=== PATIENT | male | born 1955 | race Caucasian/White ===

== ENCOUNTER 2018-05-03 13:33 | Emergency (ER) | payer OTHER ==
[~2018-05-03 13:33] MED LIST: ASPIR 8181 MG PO; ATORVASTATIN CA40 M1 PO; BACTRIM 400-801 EACH PO; CO-Q10 300 MG-31 SGL PO; FUROSEMIDE20 MG PO; GLUCOSAMINE & C1 CAP PO; LABETALOL HCL100 M1 PO; LASIX80 M1 PO; LEVOTHYROXINE0.1 M1 PO; LISINOPRIL20 MG PO; LISINOPRIL40 M1 PO; MELATONIN3 MG PO; METOLAZONE10 M1 PO; MULTIVITAMIN1 TAB PO; NORVASC 5MG TAB5 MG PO; PREDNISONE20 M1 PO; PREDNISONE50 MG PO; SIMVASTATIN40 MG PO; VITAMIN D31000 UNI1 PO
[2018-05-03 13:39] VITALS: BP 118/79
[2018-05-03] MEDS ORDERED: LISINOPRIL20 M1 PO (21:36)
[2018-05-03] MEDS ORDERED: IMBRUVICA140 M1 PO (21:36)
[2018-05-03] MEDS ORDERED: LEVOTHYROXINE100 MC1 PO (21:36)
[2018-05-03] MEDS ORDERED: MUCINEX600 M1 PO (21:37)
[2018-05-03] MEDS ORDERED: GLUCOSAMINE CH1 EAC1 PO (21:37)
[2018-05-03] MEDS ORDERED: ASPIRIN EC81 M1 PO (21:37)
[2018-05-03] MEDS ORDERED: ZINC30 M2 PO (21:38)
[2018-05-03] MEDS ORDERED: MELATONIN5 M7 PO (21:38)
[2018-05-03] MEDS ORDERED: VITAMIN D1000 UNIT PO (21:38)
[2018-05-03] MEDS ORDERED: CLARITIN10 M1 PO (21:38)
[2018-05-03] MEDS ORDERED: FUROSEMIDE40 M1 PO (21:39)
[2018-05-03] MEDS ORDERED: CO Q-10150 MG PO (21:39)
[2018-05-03] MEDS ORDERED: AUGMENTIN 875-1 EACH PO (23:51)
[2018-05-06] MEDS ORDERED: BACTRIM DS TAB1 EACH PO (16:17)
== END 2018-05-03 14:55 | disposition admitted as inpatient to this hospital (09) ==
LOC: ERH 13:33
PROVIDERS: Physician Assistant
DX: R35.0 Frequency of micturition (principal); R53.83 Other fatigue; R50.9 Fever, unspecified
CPT/HCPCS: 87040; 87086; 99281; J0696